=== PATIENT | male | born 1980 | race American Indian/Alaskan Native ===

== ENCOUNTER 2017-08-22 05:38 | Day surgery (SDC) | payer BC ==
[2017-08-22] MEDS ORDERED: ANCEF/STERILE WATER 2 GM/20 ML IV NR (06:00)
[2017-08-22] MEDS ORDERED: NACL BACTERIOSTATIC INFILTRATI ONE (06:32)
--- NOTE | 2017-08-22 07:32 | Anesthesia Day of Surgery ---
Anesthesia Day of Surgery - Day of Surgery Patient Examined: Yes Patient H&P Reviewed: Yes Patient is NPO: Yes
--- NOTE | 2017-08-22 07:32 | Anesthesia Consultation ---
Anesthesia Consult and Med Hx Date of service: 08/22/17 - Airway Anesthetic Teeth Evaluation: Good ROM Head & Neck: Adequate Mental/Hyoid Distance: Adequate Mallampati Class: Class II Intubation Access Assessment: Probably Good - Pulmonary Exam CTA: Yes - Cardiac Exam Cardiac Exam: RRR - Pre-Operative Health Status ASA Pre-Surgery Classification: ASA3 Proposed Anesthetic Plan: General - Pulmonary Hx Smoking: Yes (SINCE 2001 2-4 CIGARETTES DAILY) Hx Asthma: Yes Hx Sleep Apnea: Yes - Cardiovascular System Hx Hypertension: Yes (8 MOS.) Hx Heart Murmur: Yes - Central Nervous System Hx Psychiatric Problems: No - Endocrine Hx Non-Insulin Dependent Diabetes: Yes - Other Systems Hx Alcohol Use: Yes (RARELY) Hx Substance Use: No Hx Cancer: No
[2017-08-22] MEDS ORDERED: MARCAINE 0.25% INFILTRATI ONE ×2 (07:39→08:16)
[2017-08-22] MEDS ORDERED: XYLOCAINE 1% 20 mL ONE (07:39)
[2017-08-22] MEDS ORDERED: PEPCID IV NR (08:00)
[2017-08-22] MEDS ORDERED: VERSED IV NR (08:00)
[2017-08-22] MEDS ORDERED: NACL 0.9% 1000 ML 1,000 ML IV SCH (08:00)
[2017-08-22] MEDS ORDERED: SUBLIMAZE ONE (08:04)
[2017-08-22] MEDS ORDERED: DIPRIVAN 10 MG/ML IV ONE (08:05)
[2017-08-22] MEDS ORDERED: NACL 0.9% IR ONE (08:16)
[2017-08-22] MEDS ORDERED: DILAUDID ONE (09:08)
[2017-08-22] MEDS ORDERED: QUELICIN ONE (09:20)
[2017-08-22] MEDS ORDERED: XYLOCAINE MPF 2% ONE (09:20)
[2017-08-22] MEDS ORDERED: ZEMURON IV ONE (09:20)
[2017-08-22] MEDS ORDERED: ROBINUL ONE (09:22)
--- NOTE | 2017-08-22 10:26 | Operative Report ---
Operative Report Operative Report: Date of procedure: 08/22/2017 Pre-operative diagnosis: Right upper back soft tissue mass Post-operative diagnosis: Same Procedure name(s): Excision of right upper back soft tissue mass Surgeon: Wolfgang Champagne MD Social Worker Clinical: None Anesthesia: Gen. EBL: 20 mL Complications: None Instrument Count: Correct Indications: This is a 37-year-old male with a history of a right upper back soft tissue mass that has progressively gotten larger and is now causing pain. He was offered the above named procedures possible diagnostic and therapeutic modality. The risks and benefits to discuss until all questions were answered. He was subsequently brought to the OR. Findings: 14 x 15 x 5 cm subfascial right upper back soft tissue mass Procedure: We reviewed the informed consent. The patient was then placed prone upon the table, After adequate anesthesia was reached. The patient was prepped and draped in the usual sterile fashion. We infiltrated local anesthetic along the line of incision using the skin lines as a guide. We then made an incision through the skin using a 10 blade. Dissection was carried down to the overlying fascia which was incised using electrocautery at which time we encountered the soft tissue mass which was dissected free from surrounding fascial attachments. The findings were consistent with what was noted above. We the mass and handed off the table to be sent to pathology for further evaluation. We then ensured hemostasis. We placed Avitene within the wound. We then approximated the space using a 2-0 Vicryl. Following which we Approximated the subcutaneous tissues using a 3-0 Vicryl. We used 3-0 Monocryl to close the skin. The wound was bandaged sterilely. Pressure bandage was applied to the area. The patient tolerated procedure well, was awakened , extubated, and transferred to recovery room in no apparent distress.
--- NOTE | 2017-08-22 10:28 | Short Stay Summary ---
Short Stay Documentation Date of service: 08/22/17 - History H&P: dictated - Allergies and Medications Current Medications: Allergies No Known Allergies Allergy (Verified 08/15/17 11:27) Home Medications Medication Instructions Recorded Confirmed Last Taken Type ALBUTEROL Inhaler [Proair] 2 puff IH QID PRN 08/15/17 08/22/17 08/21/17 21:00 History Lovastatin [Altoprev] 20 mg PO DAILY 08/15/17 08/22/17 08/21/17 20:30 History Sitagliptin Phos/Metformin HCl 1 tab PO DAILY 08/15/17 08/22/17 08/21/17 20:30 History [Janumet XR 100-1,000 mg] amLODIPine [Norvasc] 10 mg PO DAILY 08/15/17 08/22/17 08/21/17 20:30 History Active Medications Cefazolin Sodium (Ancef/Sterile Water 2 Gm/20 Ml) 2 gm IV PREOP NR Stop: 08/22/17 23:59 Famotidine (Pepcid) 20 mg IV PREOP NR Stop: 08/22/17 12:00 Sodium Chloride (Nacl 0.9% 1000 Ml) 1,000 mls @ 100 mls/hr IV DIRECT JARETH Midazolam HCl (Versed) 2 mg IV PREOP NR Stop: 08/22/17 23:59 - Brief post op/procedure progress note Date of procedure: 08/22/17 Pre-op diagnosis: right upper back soft tissue mass Post-op diagnosis: same Procedure: Excision of right upper back soft tissue mass Anesthesia: GETA Findings: 15 x 14 x 5 cm subfascial right upper back soft tissue mass Surgeon: ESTRELLA VAZQUEZ Estimated blood loss: minimal Pathology: list (tissue mass) Condition: stable - Disposition Condition at discharge: Stable Disposition: DC-01 TO HOME OR SELFCARE Short Stay Discharge Plan Wound: keep clean and dry, remove dressing (in 2 days) Follow up with: ESTRELLA VAZQUEZ MD [Staff Physician] - 7 Days Forms: Outpatient Surgery DC Inst. Prescriptions: oxyCODONE /ACETAMINOPHEN [Percocet 5/325] 1 tab PO Q6HR PRN #20 tablet PRN Reason: Pain
[2017-08-22] MEDS ORDERED: PROVENTIL IH ONE ×2 (10:35→10:37)
[2017-08-22 12:44] VITALS: BP 120/73
== END 2017-08-22 12:17 | disposition home or self-care (01) ==
LOC: OR 05:38
PROVIDERS: ATTEND Surgery
DX: M79.89 Other specified soft tissue disorders (principal); I10 Essential (primary) hypertension; J45.909 Unspecified asthma, uncomplicated; E10.9 Type 1 diabetes mellitus without complications; E66.9 Obesity, unspecified; F17.210 Nicotine dependence, cigarettes, uncomplicated; Z68.43 Body mass index [BMI] 50.0-59.9, adult; Z79.84 Long term (current) use of oral hypoglycemic drugs
CPT/HCPCS: 21933; 82962; 88307; J0330; J0690; J2250; J2704; J3010; J7030; J1170